=== PATIENT | female | born 1935 | race Caucasian/White ===

== ENCOUNTER 2022-11-11 13:25 | Outpatient (CLI) | payer MEDICARE, BC ==
[~2022-11-11 13:25] MED LIST: Magnevist 469MG/ML 20 ML VIAL ONE
== END 2022-11-11 13:26 | disposition home or self-care (01) ==
LOC: CSHMRI 13:25
PROVIDERS: ATTEND Family Medicine
DX: M54.50 Low back pain, unspecified (principal); M47.816 Spondylosis without myelopathy or radiculopathy, lumbar region; M51.36 Other intervertebral disc degeneration, lumbar region; M48.061 Spinal stenosis, lumbar region without neurogenic claudication; M43.16 Spondylolisthesis, lumbar region
CPT/HCPCS: 72158; 82565; A9579